=== PATIENT | female | born 1970 | race Caucasian/White ===

== ENCOUNTER → 2018-10-15 11:29 | Outpatient (CLI) | payer OTHER, SELFPAY ==
[2018-10-16 16:03] LABS: HPV Reflexed? NOT INDICATED
== END ==
PROVIDERS: Visit Provider Obstetrics & Gynecology
DX: Z12.4 Encounter for screening for malignant neoplasm of cervix (principal)
CPT/HCPCS: 88175; G0145

== ENCOUNTER → 2020-05-23 10:12 | Outpatient (CLI) | payer OTHER, SELFPAY ==
[2020-05-16 10:08] VITALS: BMI 22.4
[2020-05-23 10:46] LABS: Vitamin D,25 Hydroxy 59.1 ng/mL
[2020-05-23 10:54] LABS: AST(SGOT) 15 U/L (15-37); Alanine Aminotransfer ALT/SGPT 16 U/L (13-56); Alkaline Phosphatase 74 U/L (45-117); Anion Gap 6 (5-15); BUN 13 mg/dL (7-18); BUN/Creat Ratio 17.5 RATIO (10-20); Calcium,Total 9.2 mg/dL (8.5-10.1); Chloride 104 mmol/L (98-107); Cholesterol 236 mg/dL (200); Creatinine, Serum 0.74 mg/dL (0.55-1.02); EST Glomerular Filtration Rate 88 mL/min (>60); Est Glom Filt Rate - Afr Amer 106 mL/min (>60); Globulin 3.9 g/dL (2.2-4.2); Glucose 101 mg/dL (74-106); High Density Lipoprotein 68 mg/dL; Potassium 3.9 mmol/L (3.5-5.1); Protein, Total 7.9 g/dL (6.4-8.2); Sodium Level 138 mmol/L (136-145); Thyroid Stim Hormone (TSH) 2.08 uIU/mL (0.358-3.74); Triglycerides 92 mg/dL; Very Low Density Lipoprotein 18 mg/dL (5-40)
== END ==
PROVIDERS: PCP Internal Medicine; Referring Provider Obstetrics & Gynecology; Visit Provider Obstetrics & Gynecology
DX: Z00.00 Encounter for general adult medical examination without abnormal findings (principal); Z13.21 Encounter for screening for nutritional disorder; Z13.29 Encounter for screening for other suspected endocrine disorder; Z13.220 Encounter for screening for lipoid disorders
CPT/HCPCS: 36415; 80053; 80061; 82306; 84443

== ENCOUNTER → 2020-05-25 07:45 | Outpatient (CLI) | payer OTHER, SELFPAY ==
[2020-05-16 10:08] VITALS: BMI 22.4
--- NOTE | 2020-05-25 07:46 | US_ITS ---
STUDY: ULTRASOUND OF THE FEMALE PELVIS - COMPLETE REASON FOR EXAM: Female, 49 years old. ENLARGED UT -- LMP 5 YEARS AGO LMP: The patient is postmenopausal. TECHNIQUE: Transabdominal and Transvaginal TECHNICAL QUALITY: Adequate. COMPARISON: None. FINDINGS: The uterus is anteverted and is in a midline position. The uterus is enlarged and measures 15.6 cm x 6.1 cm x 6.1 cm. Normal uterine cervix. The endometrium was not available for measurement due to the fibroids. 2 dominant fibroids are seen. The larger measures 4.1 cm x 4.8 cm x 4.6 cm. I.U.D. - The patient does not have an I.U.D. The right ovary is visualized. The right ovary measures 2 cm x 1.9 cm x 1.1 cm. There is no right ovarian cyst or ovarian mass. There is no visualized right adnexal mass or complex lesion. There is normal arterial and normal venous vascularity. The left ovary is visualized. The left ovary measures 2 cm x 2.3 cm x 0.7 cm. There is no left ovarian cyst or ovarian mass. There is no visualized left adnexal mass or complex lesion. There is normal arterial and normal venous vascularity. There is no fluid in the cul-de-sac. US/Pelvic (Non ) IMPRESSION: Enlarged fibroid uterus. Electronically Signed: Harry Beaulieu, at 13:08 EDT , Service support ,
--- NOTE | 2020-05-25 07:46 | US_ITS ---
STUDY: ULTRASOUND OF THE FEMALE PELVIS - COMPLETE REASON FOR EXAM: Female, 49 years old. ENLARGED UT -- LMP 5 YEARS AGO LMP: The patient is postmenopausal. TECHNIQUE: Transabdominal and Transvaginal TECHNICAL QUALITY: Adequate. COMPARISON: None. FINDINGS: The uterus is anteverted and is in a midline position. The uterus is enlarged and measures 15.6 cm x 6.1 cm x 6.1 cm. Normal uterine cervix. The endometrium was not available for measurement due to the fibroids. 2 dominant fibroids are seen. The larger measures 4.1 cm x 4.8 cm x 4.6 cm. I.U.D. - The patient does not have an I.U.D. The right ovary is visualized. The right ovary measures 2 cm x 1.9 cm x 1.1 cm. There is no right ovarian cyst or ovarian mass. There is no visualized right adnexal mass or complex lesion. There is normal arterial and normal venous vascularity. The left ovary is visualized. The left ovary measures 2 cm x 2.3 cm x 0.7 cm. There is no left ovarian cyst or ovarian mass. There is no visualized left adnexal mass or complex lesion. There is normal arterial and normal venous vascularity. There is no fluid in the cul-de-sac. US/Transvaginal Non- IMPRESSION: Enlarged fibroid uterus. Electronically Signed: Harry Beaulieu, at 13:08 EDT , Service support ,
== END ==
PROVIDERS: PCP Internal Medicine; Referring Provider Obstetrics & Gynecology; Visit Provider Obstetrics & Gynecology
DX: N85.2 Hypertrophy of uterus (principal)
CPT/HCPCS: 76830; 76856

== ENCOUNTER → 2020-09-19 08:26 | Outpatient (CLI) | payer OTHER, SELFPAY ==
[2020-05-30 10:18] VITALS: BMI 22.4
--- NOTE | 2020-09-19 08:31 | US_ITS ---
STUDY: ULTRASOUND OF THE FEMALE PELVIS - COMPLETE REASON FOR EXAM: Female, 49 years old. Enlarged fibroid ut LMP: The patient is postmenopausal. TECHNIQUE: Transabdominal and Transvaginal TECHNICAL QUALITY: Adequate. COMPARISON: Comparison is made with prior study dated 05/25/2020. FINDINGS: The uterus is anteverted and is in a midline position. The uterus is enlarged and measures 10.6 cm x 8.8 cm x 6.1 cm. Normal uterine cervix. The endometrium measures 2.0 mm in thickness, and is hyperechoic. There is no demonstrated endometrial mass. Several uterine fibroids are seen. The largest measures 4.8 cm x 5.3 cm x 4.7 cm. This is essentially unchanged. I.U.D. - The patient does not have an I.U.D. The right ovary is visualized. The right ovary measures 1.9 cm x 2 cm x 1.1 cm. There is no right ovarian cyst or ovarian mass. There is no visualized right adnexal mass or complex lesion. There is normal arterial and normal venous vascularity. The left ovary is visualized. The left ovary measures 1.4 cm x 1.5 cm x 0.8 cm. There is no left ovarian cyst or ovarian mass. There is no visualized left adnexal mass or complex lesion. There is normal arterial and normal venous vascularity. There is no fluid in the cul-de-sac. The pre void volume of the bladder was 253 ml. Polycystic ovary disease: No. US/Transvaginal Non- IMPRESSION: Enlarged fibroid uterus. Essentially stable. Electronically Signed: Harry Beaulieu, at 13:39 EST , Service support ,
--- NOTE | 2020-09-19 08:31 | US_ITS ---
STUDY: ULTRASOUND OF THE FEMALE PELVIS - COMPLETE REASON FOR EXAM: Female, 49 years old. Enlarged fibroid ut LMP: The patient is postmenopausal. TECHNIQUE: Transabdominal and Transvaginal TECHNICAL QUALITY: Adequate. COMPARISON: Comparison is made with prior study dated 05/25/2020. FINDINGS: The uterus is anteverted and is in a midline position. The uterus is enlarged and measures 10.6 cm x 8.8 cm x 6.1 cm. Normal uterine cervix. The endometrium measures 2.0 mm in thickness, and is hyperechoic. There is no demonstrated endometrial mass. Several uterine fibroids are seen. The largest measures 4.8 cm x 5.3 cm x 4.7 cm. This is essentially unchanged. I.U.D. - The patient does not have an I.U.D. The right ovary is visualized. The right ovary measures 1.9 cm x 2 cm x 1.1 cm. There is no right ovarian cyst or ovarian mass. There is no visualized right adnexal mass or complex lesion. There is normal arterial and normal venous vascularity. The left ovary is visualized. The left ovary measures 1.4 cm x 1.5 cm x 0.8 cm. There is no left ovarian cyst or ovarian mass. There is no visualized left adnexal mass or complex lesion. There is normal arterial and normal venous vascularity. There is no fluid in the cul-de-sac. The pre void volume of the bladder was 253 ml. Polycystic ovary disease: No. US/Pelvic (Non ) IMPRESSION: Enlarged fibroid uterus. Essentially stable. Electronically Signed: Harry Beaulieu, at 13:39 EST , Service support ,
== END ==
PROVIDERS: PCP Internal Medicine; Referring Provider Obstetrics & Gynecology; Visit Provider Obstetrics & Gynecology
DX: D25.1 Intramural leiomyoma of uterus (principal); N85.2 Hypertrophy of uterus
CPT/HCPCS: 76830; 76856

== ENCOUNTER 2021-04-25 07:42 | Day surgery (SDC) | payer OTHER, SELFPAY ==
[2021-03-28 13:31] VITALS: BMI 22.4
--- NOTE | 2021-04-21 09:54 | EKG12_ITS ---
Test Reason : PREOP Blood Pressure : / mmHG Vent. Rate : 066 BPM Atrial Rate : 066 BPM P-R Int : 132 ms QRS Dur : 098 ms QT Int : 404 ms P-R-T Axes : 072 048 055 degrees QTc Int : 423 ms Normal sinus rhythm Normal ECG Confirmed by CLARI CAMPO, DENITA ([id number]), automation technician AMARI SEO ([id number]) on 04/26/2021 2:28:42 PM Referred By: Yasmine Olivares Confirmed By:DENITA MONTAGUE MD
[2021-04-21 11:21] LABS: Absolute Lymphocyte Count 0.87 X10^3/uL (0.83-4.51); Absolute Neutrophil Count 3.6 X10^3/uL (2.0-7.7); Basophil# 0.03 X10^3/uL; Basophil% 0.6 % (0-1); Eosinophil# 0.04 X10^3/uL; Eosinophils% 0.8 % (0-5); Hematocrit 43.9 % (37-47); Hemoglobin 14.1 g/dL (12.0-15.0); Lymphocyte # 0.87 X10^3/ul (0.83-4.51); Mean Corp Hgb Conc 32.1 g/dL (32-36); Mean Corpuscular Hgb 30.1 pg (27.0-32.0); Mean Corpuscular Volume 93.6 fL (81-99); Mean Platelet Vol. 10.7 fl (6.2-12.0); Monocyte# 0.54 X10^3/uL; Monocyte% 10.6 % (0-10); NRBC Flagged by Analyzer 0 % (0-5); Neutrophil # 3.61 X10^3/uL (2.7-7.7); Neutrophil % 70.6 % (47-70); Platelet Count 238 K/mm3 (150-450); RBC Distribution Width SD 44.2 fl (35.1-43.9); Red Blood Count 4.69 M/mm3 (4.2-5.4); White Blood Count 5.1 K/mm3 (4.4-11.0)
[2021-04-21 11:43] LABS: Magnesium 2.2 mg/dL (1.6-2.6)
--- NOTE | 2021-04-22 01:45 | HP.PCM_ITS ---
History and Physical Date of Admission: 04/22/21 [facility] [id number] [place] [address] [phone] OFFICE VISITDate of Service: 03/28/21 MR#:[id number]:[id number]: SHIV DESIR ARep #:[id number]:[id number] Provider:Sandra Keen/Sex: 50/F [facility] Vital Signs 03/28/21 13:29 03/28/21 13:31 Height 5 ft 4 in Weight: 131 lb BMI 22.4 22.4 BP 144/102 H Intake Visit Reasons: surgery consult Chief Complaint: surgical consult Sccm Administrator Required: No Is patient in pain?: No Allergies No Known Allergies Allergy (Unverified 05/30/20 10:18) Medications multivitamin,yh-fkub-iagrjcnv 1 tab PO DAILY 05/16/20 [History Confirmed 03/28/21] Is last menstrual period known: No Post menopausal: No Patient : No : No [facility] Medical History (Updated 03/28/21 @ 14:[address] 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 surgery consult Details: SHIV DESIR is a 50 year old who presents for surgical consult. She has a history of uteirne fibroids and pelvic pressure, urinary urgency and enlarged uterus. She wanted to originally delay surgery due to work and now is ready. she is tender in her lower abdomen. Female Reproductive History Menopausal Symptoms: No night sweats Pregancy History 2 Elective abortions Hx Para 2 Spontaneous abortions Hx # Term Pregnancies 2 Ectopic pregnancies Hx # Pregnancies Multiple births # of living children 2 Past Pregnancies Del. Date Name GA/Weeks Outcome Route Bth Weight Gen [facility] F[facility] Francisco Unknown Cydney ROS Const Constitutional: Denies fatigue, night sweats, weight gain or weight loss ENT ENT: Reports system reviewed and no additional complaints, except as documented Cardio Card: Denies chest pain Resp Resp: Denies cough or dyspnea GI GI: Reports as per HPI; Denies abdominal pain, constipation, nausea or vomiting : Reports as per HPI and urinary urgency; Denies nipple discharge, urinary frequency, urinary incontinence, urinary hesitancy, vaginal discharge, vaginal dryness, vaginal odor or vaginal pruritus Musc Musc: Denies arthralgias, back pain or muscle weakness Skin Skin/Breast: Denies alopecia, change in hair, dry skin, breast mass, breast pain, breast skin changes or nipple discharge Neuro Neuro: Reports system reviewed and no additional complaints, except as documented Psych Psych: Reports system reviewed and no additional complaints, except as documented Endo Endo: Denies cold intolerance, excessive sweating, heat intolerance or polydipsia Rios/Lymph Hematologic/Lymphatic: Denies easy bleeding, Denies easy bruising and Denies lymphadenopathy Exam Const General: cooperative, healthy appearing, comfortable, no acute distress and well developed Orientation: alert [facility] Head: normal to inspection and normocephalic Ears: hearing grossly normal bilaterally and external ears normal Nose: external nose normal and nares normal Face and sinus: normal facial exam Neck Neck: normal visual inspection and no lymphadenopathy Thyroid: thyroid normal Chest Chest palpation & inspection: normal inspection of the chest Resp Effort & Inspection: normal respiratory effort Auscultation: clear to auscultation bilaterally Cardio Rate: regular rate Rhythm: regular rhythm Heart Sounds: S1 normal and S2 normal GI Inspection: normal to inspection and non-distended Palpation: soft and no hepatosplenomegaly Other: enlarged uterus 12-14 week size. Musc Other: gross motor intact no deficits, full bilateral strength Skin General: no rashes or lesions noted Neuro General: patient alert, patient awake, moves all extremities and no focal motor deficits Motor: muscle tone normal throughout Extrem General: normal to inspection and no pedal edema Psych Appearance: grossly normal Mental Status: mental status grossly normal Affect: normal affect Speech and Movement: speech and movement normal Coding Level of Care Code Off vis,est,level 5 Diagnoses Intramural uterine fibroid D25.1 Enlarged uterus N85.2 Assessment and Plan Assessment and Plan (1) Intramural uterine fibroid: Status: Acute Comment: plan JACKLYN April. . Plan - Dr. Yasmine Olivares MD: After discussing the patient's diagnosis and treatment plan options, patient wishes to proceed with surgical management. I have discussed with the patient the risks, benefits, and alternatives of the procedure which include but are not limited to risks of anesthesia, bleeding, infection, possible damage to bowel, bladder, or surrounding vasculature which could lead to additional surgery to evaluate any complications. Patient agrees to procedure and wishes to proceed. ACOG/uptodate references given for additional information regarding procedure. (2) Enlarged uterus: Status: Acute
[2021-04-25] VITALS (14 sets, daily range): BP systolic 130–174; BP diastolic 78–115; PULSE 69–112; RESP 16; TEMP 36.1–36.4; O2SAT 93–100; BMI 22.2
--- NOTE | 2021-04-25 | HYST_PTH ---
PATIENT: SHIV DESIR [place] [facility] [id number] AGE/SX: 50/F ROOM: RE04/25/[address]: Dr. Yasmine Olivares MD : 1970 BED: DIS: 04/25/2021 SPEC #: [id number] RECD: 04/25/21 13:58 STATUS: ZURI CAO #: [id number] TRISH: 04/25/21 00:[address]: Yasmine Olivares DEPT: SURGICAL PATHOLOGY RECD BY: Bill Wagoner ENTERED: 04/26/21 08:52 SP TYPE: HYSTERECT OTHR DR: Dr. Ifeoma Ramsey MD Tissues: Uterus, NOS Procedures: Surgery Specimen Level V HEADER OPERATION: ERAS, hysterectomy, LAVH, salpingectomy PRE-OP DIAGNOSIS: Intramural uterine fibroid TISSUE SUBMITTED: Uterus, cervix, bilateral fallopian tubes MICROSCOPIC DIAGNOSIS Uterus, hysterectomy: Cervix ? nabothian cysts and mild chronic inflammation. Endometrium ? weakly proliferative to inactive endometrium. Myometrium ? leiomyoma and adenomyosis. Right fallopian tube ? no pathologic change. Left fallopian tube ? benign paratubal cysts. AM:elizabeth 04/27/2021 MICROSCOPIC DESCRIPTION Slides are reviewed. GROSS DESCRIPTION Received in fixative is one container labeled with the patient's name and designated uterus. The specimen consists of a morcelated uterus received in six fragments and ranging in size from 2.5 to 8 cm and in aggregate weighing 285 gm. The presumed endocervical canal measures 4.5 cm in length and is grossly unremarkable. A distinct endometrial cavity is not identified. The myometrium appears to contain a lobulated, rubbery nodule resembling leiomyoma and measuring 7 cm in diameter. Rubbery fragments of white-mack tissue resembling portions of leiomyoma are also present free in the container. No areas of cyst formation, necrosis or hemorrhage are identified within this nodule. Two fallopian tubes are attached, both have an average length of 4 cm and average diameter of 3.4 cm. Normal fimbriated ends are identified on both fallopian tubes. Apprentice Stylist sections are submitted in ten cassettes as follows: 1 - cervix and endocervix, 2-5 - presumed endometrium and adjacent myometrium, 6-8 - myometrial nodule, 9 - one fallopian tube, 10 - the other fallopian tube. / AM:elizabeth 04/26/21 TC:1 CPT: 59134
[2021-04-25] MEDS: Enoxaparin 40 MG/0.4 ML Syringe SC (08:24)
[2021-04-25] MEDS: Scopolamine 1mg/72hr Patch 1 PATCH TD (08:24)
[2021-04-25] MEDS: Gabapentin 600 MG Tablet PO (08:25)
[2021-04-25] MEDS: Celecoxib 200 MG Capsule 400 MG PO (08:25)
[2021-04-25] MEDS: Phenazopyridine 95 MG Tablet 190 MG PO (08:25)
[2021-04-25] MEDS: Acetaminophen 500 MG Tablet 1000 MG PO (08:25)
[2021-04-25] MEDS: dexAMETHasone 10 MG/ML Vial 8 MG IV (08:26)
[2021-04-25] MEDS: Lactated Ringers 1,000 ML 40 ML IV (08:27)
[2021-04-25 08:55] LABS: Bedside Glucose 101 mg/dL (70-110)
[2021-04-25] MEDS: Ondansetron 4 MG/2 ML Vial IV (09:40)
[2021-04-25] MEDS: Cefazolin 2 GM in 0.9% Normal Saline 100 ML IV (09:47)
--- NOTE | 2021-04-25 10:00 | OP.PCM_ITS ---
Problems Associated Problem List Diagnoses (1) DVT (deep venous thrombosis): (2) Enlarged uterus: (3) Intramural uterine fibroid: Report of Operation Date of Procedure: 04/25/21 Pre-Operative Diagnosis: AUB Post-Operative Diagnosis: same Surgery/Procedure Performed:: LAVHBS cystoscopy Description of Surgical Findings:: uterus small and atrophic with large posterior fibroid manager mining: Myrna Gibson Type of Anesthesia: General Special Medications: shruthi Specimen's removed: uterus, tubes Drains: chavarria Estimated Blood Loss (mL): 100 Fluids Replaced: crystalloid Description of Procedure: Patient received preoperative antibiotics and SCDs were on preoperatively. Patient was taken back to the operating room and placed in the dorsal lithotomy position. General anesthesia was induced and patient was prepped and draped in normal sterile fashion. Uterine manipulator was placed inside the uterus and Chavarria catheter placed in the bladder. The umbilicus was grasped with towel clamps and an intraumbilical incision was made after injecting with quarter percent Marcaine and a Veress needle entered into the abdomen confirmed to be intra-abdominal with a low opening pressure. Abdomen was insufflated with CO2 gas and the Veress needle removed and the 5 mm trocar was placed under direct visualization without complication. Right and left lower quadrants were transilluminated and injected with quarter percent Marcaine and 5 mm ports placed under direct visualization. Pelvis was well visualized see operative findings for additional information. Bilateral fallopian tubes were identified and transected with the LigaSure device across the mesosalpinx to the level of the utero-ovarian ligament which was also transected with the LigaSure device. The broad ligament was opened up by transecting the round ligament bilaterally and skeletonizing the uterine vessels bilaterally and creating a bladder flap using the LigaSure device. The uterine arteries were transected bilaterally with good visualization of the bladder and the ureters were seen to be inferior lateral to the operative area. Attention was then paid to the vaginal portion of the procedure and the cervix was grasped with Fermin clamps and circumferentially injected with dilute vasopressin. A circumferential incision was made and the vaginal mucosa was mobilized off posteriorly and the cul-de-sac entered into sharply and a longneck speculum placed. The anterior cul-de-sac was then identified and entered into sharply. The uterosacral ligaments were clamped cut and suture ligated with 0 Monocryl bilaterally followed by the cardinal ligaments which were clamped cut and suture ligated bilaterally with 0 Monocryl. The uterus serially descended and was removed with coring resection for morcellation and without difficulty. Pelvic sidewall pedicles were checked and noted to have excellent hemostasis. The vaginal mucosa was reapproximated incorporating the posterior peritoneum. This was reapproximated using 0 Vicryl onviad-it-oymlb sutures. Excellent hemostasis was noted. Due to the close proximity of the ureter to the right cuff angle in the pelvis, cystoscopy was performed. The cystoscopy was then performed and bilateral ureteral strong spray was noted and the bladder was noted to have no abnormality or lesions seen. Chavarria catheter was replaced and then attention paid to the abdominal portion of the procedure again. The pelvis and cul-de-sac were well visualized and no significant active bleeding noted but some raw areas were seen on the peritoneum and therefore Shruthi was applied. Pressure was taken down and the areas visualized and noted of excellent hemostasis. All ports were removed under direct visualization without complication and the abdo men was desufflated of air. The instruments were removed from the abdomen and the vaginal sweep was negative. Port sites on the abdomen were closed with 4-0 Monocryl interrupted sutures and Steri's and windows were applied. She was awoken and taken recovery in stable condition. Grafts/Implants Used: none Complications none Admit VTE Documentation VTE Present on Admission: No VTE Mechan Device Prophylaxis: SCD's VTE Pharm Prophylaxis ordered?: Yes Multi Select Codes Urinary/Genital Urinary/Genital CPT Codes: 37312 Cystoscopy and 32846 LAVH+BS/O <250gr Uterus
--- NOTE | 2021-04-25 10:01 | EX.PCM.DISCH ---
Discharge Instructions Diet Discharge Diet: No restrictions Activity May resume sexual activity in: 6 weeks Weight Bearing Status: Full weight bearing Dressing / Incision Call your doctor if your incision/area has: Continuous Slow Oozing, Sudden Increased Bleeding, Increased Pain/ Swelling, Increased Redness and Foul Smelling Discharge Call your doctor if you observe: Fever of 101 or Higher, Using more than 1 pad per hour, Shortness of breath, Chest pain and Uncontrolled pain Suture Line Care: Avoid Pulling/Pushing and Avoid Pinching/Bending Remove Dressing in: 1 week (if present) Cleanse incision/area with: Soap & Water and Keep Dressing Clean & Dry Follow Up Care Please Follow Up With: Yasmine Olivares MD When: Call to make an appointment with your doctor for a postop visit in 2 and 6 weeks. Test Results: Test results from this visit will be discussed in further detail at your follow-up appointment, if applicable. Discharge Plan Admission Primary Reason for Your Visit: hysterectomy Attending Provider: Yasmine Olivares Primary Care Provider: Ifeoma Ramsey Discharge Orders/Prescriptions Prescriptions: New oxycodone-acetaminophen [Endocet] 5-325 mg tablet 1 tab PO Q4H PRN (Reason: pain) 7 Days Qty: 20 RF: 0 ibuprofen [ibuprofen] 600 MG tablet 600 mg PO Q6H PRN PRN (Reason: fever or pain) Qty: 30 RF: 0 enoxaparin [Lovenox] 40 MG/0.4 ML syringe 40 mg SQ DAILY 40 Days Qty: 20 RF: 1 Continued multivitamin,ni-qwqe-tvgqtojg tablet 1 tab PO DAILY RF: 0 Referrals / Follow Up: Ifeoma Ramsey MD [Primary Care Provider] - Disposition Disposition (needs filled in before D/C Order can be placed): Home, Self Care
[2021-04-25] MEDS: Lactated Ringers 1,000 ML 70 ML IV ×2 (10:05→14:15)
[2021-04-25] MEDS: Bupivacaine 0.25% 30 ML Vial (10:17)
[2021-04-25] MEDS: Vasopressin 20 UNITS/ML Vial (10:47)
[2021-04-25 12:25] LABS: Bedside Glucose 159 mg/dL (70-110)
[2021-04-25] MEDS: oxyCODONE 5 MG Tablet PO (14:02)
[2021-04-25 15:15] LABS: Hematocrit 38.6 % (37-47); Mean Corp Hgb Conc 33.7 g/dL (32-36); Mean Corpuscular Hgb 30.7 pg (27.0-32.0); Mean Corpuscular Volume 91.3 fL (81-99); Mean Platelet Vol. 10.6 fl (6.2-12.0); Platelet Count 191 K/mm3 (150-450); RBC Distribution Width CV 12.9 % (11.6-14.6); RBC Distribution Width SD 43.2 fl (35.1-43.9); Red Blood Count 4.23 M/mm3 (4.2-5.4); White Blood Count 13.4 K/mm3 (4.4-11.0)
== END 2021-04-25 16:55 | disposition home or self-care (01) ==
LOC: SDC 07:44 → AC 07:44
PROVIDERS: Anesthesiology; PCP Internal Medicine; Referring Provider Obstetrics & Gynecology; Visit Provider Obstetrics & Gynecology
PROC: 0UT9FZZ Resection of Uterus, Via Natural or Artificial Opening With Percutaneous Endoscopic Assistance (ICD-10-PCS; CPT 58552; principal; 2021-04-25 09:15)
DX: D25.1 Intramural leiomyoma of uterus (principal); N80.0 Endometriosis of uterus; N83.8 Other noninflammatory disorders of ovary, fallopian tube and broad ligament; Z86.718 Personal history of other venous thrombosis and embolism
CPT/HCPCS: 58552; 36415; 82962; 83735; 85025; 85027; 86850; 86900; 86901; 88307; 93005; J7120; J2405; J3475

== ENCOUNTER → 2021-05-02 10:32 | Outpatient (CLI) | payer OTHER, SELFPAY ==
[2021-04-25 08:39] VITALS: BMI 22.2
--- NOTE | 2021-05-02 10:34 | VDUE_ITS ---
Reason For Study: PAIN Left Proximal Left jugular vein is spontaneous, widely patent, phasic, with no intraluminal echogenicity noted. Left subclavian vein is spontaneous, widely patent, phasic, with no intraluminal echogenicity noted. Left Arm Left axillary vein is spontaneous, patent, phasic, competent, compressible and demonstrates augmentation. Left brachial vein is compressible. Left cephalic vein is compressible. Left basilic vein is compressible. Left Lower Arm Left radial vein is compressible. Left ulnar vein is compressible. Patient Safety Preliminary called to Shefali JOHNSON @ [phone] @ 11 am. VL/Venous Duplex US, Unilateral Interpretation Summary No evidence for acute deep venous thrombosis[left] upper extremity with patent and compressible cephalic and basilic veins. Ordering Physician: Yasmine Olivares Referring Physician: Ifeoma Ramsey Performed By: Brooke Brewster RVT, RDCS and Student ?
== END ==
PROVIDERS: PCP Internal Medicine; Referring Provider Obstetrics & Gynecology; Visit Provider Obstetrics & Gynecology
DX: I82.409 Acute embolism and thrombosis of unspecified deep veins of unspecified lower extremity (principal)
CPT/HCPCS: 93971

== ENCOUNTER → 2021-06-05 11:20 | Outpatient (CLI) | payer OTHER, SELFPAY ==
[2020-05-30 10:18] VITALS: BMI 22.4
[2021-06-05 09:53] VITALS: BMI 22.2
--- NOTE | 2021-06-05 11:21 | BI_ITS ---
MAMMOGRAPHY - BILATERAL SCREENING REASON FOR EXAM: Female, 50 years old. Routine annual screening examination. PERTINENT HISTORY: Non-contributory. TECHNIQUE: Digital bilateral breast moise (3D mammographic acquisition) in the CC and MLO projections. 2-D mediolateral oblique (MLO) and craniocaudad (CC) views of both breasts were obtained. CAD: Full Field Digital Mammography with Computer Added Detection was performed. COMPARISON: Comparison is made with prior abdomen examination dated 09/21/2019. FINDINGS: Breast Composition: There are scattered areas of fibroglandular density. There are no dominant masses or suspicious calcifications. No other significant abnormalities are identified. There has been no significant change since the prior study. BI/SCRN MAMM (CAD)W/MOISE BILAT IMPRESSION: Stable bilateral screening mammogram. Yearly follow-up mammogram recommended. (A) ASSESSMENT CATEGORY: BIRADS Category 1: Negative. A letter regarding these results will be sent to the patient by the facility within 30 days. Approximately 10% of breast cancers are not detected by mammography. A normal mammogram should not delay biopsy of a clinically suspicious abnormality. [id number] Electronically Signed: Harry Beaulieu MD at 12:51 EDT , Service support ,
== END ==
PROVIDERS: PCP Internal Medicine; Referring Provider Obstetrics & Gynecology; Visit Provider Obstetrics & Gynecology
DX: Z12.31 Encounter for screening mammogram for malignant neoplasm of breast (principal)
CPT/HCPCS: 77063; 77067

== ENCOUNTER → 2022-06-14 | Outpatient (CLI) | payer OTHER, SELFPAY ==
--- NOTE | 2022-06-14 16:26 | BI_ITS ---
MAMMOGRAPHY - BILATERAL SCREENING REASON FOR EXAM: Female, 51 years old. Routine annual screening examination. PERTINENT HISTORY: Aunt with breast cancer. TECHNIQUE: Digital bilateral breast moise (3D mammographic acquisition) in the CC and MLO projections. 2-D mediolateral oblique (MLO) and craniocaudad (CC) views of both breasts were obtained. CAD: Full Field Digital Mammography with Computer Added Detection was performed. COMPARISON: Comparison is made with prior examination 06/05/2021. FINDINGS: Breast Composition: The breasts are heterogeneously dense, which may obscure small masses. There are no dominant masses or suspicious calcifications. No other significant abnormalities are identified. There has been no significant change since the prior study. BI/SCRN MAMM (CAD)W/MOISE BILAT IMPRESSION: Stable bilateral screening mammogram. Yearly follow-up mammogram recommended. (A) ASSESSMENT CATEGORY: BIRADS Category 1: Negative. A letter regarding these results will be sent to the patient by the facility within 30 days. Approximately 10% of breast cancers are not detected by mammography. A normal mammogram should not delay biopsy of a clinically suspicious abnormality. [id number] Electronically Signed: Harry Beaulieu MD at 8:36 EDT ,
== END | disposition home or self-care (01) ==
LOC: OPBI 16:24
PROVIDERS: PCP Internal Medicine; Visit Provider Obstetrics & Gynecology
DX: Z12.31 Encounter for screening mammogram for malignant neoplasm of breast (principal)
CPT/HCPCS: 77063; 77067

== ENCOUNTER 2022-09-12 08:28 | Outpatient (CLI) | payer OTHER, SELFPAY ==
--- NOTE | 2022-09-12 08:40 | BD_ITS ---
STUDY: DUAL ENERGY X-RAY ABSORPTIOMETRY / DXA REASON FOR EXAM: Female, 51 years old. History of fracture TECHNIQUE: Bone Mineral Density (BMD) measurements of lumbar spine and bilateral hips were obtained. COMPARISON: None. FINDINGS: Lumbar Spine (L1-L4): g/cm2 (0.775) / T-score (-2.5) / Z-score (-1.6) Findings are suggestive of osteopenia with a high fracture risk. Left Femur Total: g/cm2 (0.793) / T-score (-1.2) / Z-score (-0.6) Left Femoral Neck: g/cm2 (0.644) / T-score (-1.8) / Z-score (0.9) Right Femur Total: g/cm2 (0.820) / T-score (-1.0) / Z-score (-0.4) Right Femoral Neck: g/cm2 (0.713) / T-score (-1.2) / Z-score (-0.3) BD/Dexa Bone Density Study IMPRESSION: The patient is considered osteopenic as outlined below according to World [place] Organization (WHO) criteria with a high fracture risk. Reference Information: The T-score is the number of standard deviations above or below the standard which is normal for young adults at their peak bone mineral density. The World Health Organization (WHO) interprets the T-scores as follows: Above -1 Normal bone density Between -1 and -2.5 Osteopenia Equal to / or below -2.5 Osteoporosis As a practical clinical guideline, osteopenia may be graded as follows: Mild -1 through -1.5 Moderate -1.6 through -2.0 Severe -2.1 through -2.4 The Z-score is the number of standard deviations above or below age-matched controls. A Z-score of less than -1.5 would be considered abnormal. References: 1. NIH Osteoporosis and Related Bone Diseases www osteo.org 2. International Society for Clinical Densitometry www iscd.org 3. National Osteoporosis Foundation www nof.org Electronically Signed: Harry Beaulieu MD at 11:16 EST ,
== END 2022-09-12 23:59 | disposition home or self-care (01) ==
LOC: OPBD 08:29
PROVIDERS: PCP Internal Medicine; Visit Provider Obstetrics & Gynecology
DX: Z78.0 Asymptomatic menopausal state (principal); Z87.81 Personal history of (healed) traumatic fracture
CPT/HCPCS: 77080

== ENCOUNTER → 2022-12-10 | Outpatient (CLI) | payer OTHER, SELFPAY ==
[2022-12-10 15:57] LABS: Vitamin D,25 Hydroxy 58.6 ng/mL
[2022-12-10 16:06] LABS: ALB/GLOB Ratio 1.1 RATIO (0.9-2.4); AST(SGOT) 19 U/L (15-37); Alanine Aminotransfer ALT/SGPT 17 U/L (13-56); Albumin, Serum 3.9 g/dL (3.2-5.0); Alkaline Phosphatase 86 U/L (45-117); Anion Gap 6 (5-15); BUN 12 mg/dL (7-18); BUN/Creat Ratio 13.2 RATIO (10-20); Calcium,Total 9.5 mg/dL (8.5-10.1); Chloride 107 mmol/L (98-107); Creatinine, Serum 0.91 mg/dL (0.55-1.02); EST Glomerular Filtration Rate 69 mL/min (>60); Est Glom Filt Rate - Afr Amer 83 mL/min (>60); Globulin 3.6 g/dL (2.2-4.2); Glucose 104 mg/dL (74-106); Potassium 3.5 mmol/L (3.5-5.1); Protein, Total 7.5 g/dL (6.4-8.2); Sodium Level 141 mmol/L (136-145); Thyroid Stim Hormone (TSH) 1.44 uIU/mL (0.358-3.74)
== END | disposition home or self-care (01) ==
LOC: LAB 14:38
PROVIDERS: PCP Internal Medicine; Referring Provider Internal Medicine Endocrinology, Diabetes & Metabolism; Visit Provider Internal Medicine Endocrinology, Diabetes & Metabolism
DX: M81.0 Age-related osteoporosis without current pathological fracture (principal); E55.9 Vitamin D deficiency, unspecified
CPT/HCPCS: 36415; 80053; 82306; 83970; 84443

== ENCOUNTER → 2023-01-28 | Outpatient (CLI) | payer OTHER, SELFPAY ==
--- NOTE | 2023-01-29 05:53 | BRONCHALL_ITS ---
Bronchoprovocation Challenge Bronchoprovocation Challenge Bronchoprovocation Challenge: Brief HPI: Patient is a 52 year old female, currently under the care of Dr. Monroy, who presents to [facility] for a bronchoprovocation study secondary to diagnosis of chronic cough. Respiratory therapist reports good effort and reproducible results. Interpretation: Initial spirometry showed no large airways obstructive ventilatory defect. The patient was then given increasingly concentrated doses of methacholine in a stepwise/standardized fashion, using a modified ATS protocol. The patient?s maximum reduction in FEV1 was 11 percent predicted. Impression: Negative Bronchoprovocation study. This is NOT consistent with the diagnosis of asthma.
== END | disposition home or self-care (01) ==
LOC: PSN 06:45
PROVIDERS: PCP Internal Medicine
DX: R05.3 Chronic cough (principal)
CPT/HCPCS: 94070; 95070; J3490; J7674

== ENCOUNTER → 2023-09-11 | Outpatient (CLI) | payer OTHER, SELFPAY ==
--- NOTE | 2023-09-11 09:50 | BI_ITS ---
MAMMOGRAPHY - BILATERAL SCREENING REASON FOR EXAM: Female, 52 years old. Routine annual screening examination. PERTINENT HISTORY: Non-contributory. TECHNIQUE: Digital bilateral breast moise (3D mammographic acquisition) in the CC and MLO projections. 2-D mediolateral oblique (MLO) and craniocaudad (CC) views of both breasts were obtained. CAD: Full Field Digital Mammography with Computer Added Detection was performed. COMPARISON: Comparison is made with prior study June 14, 2022 and June 05, 2021. FINDINGS: Breast Composition: The breasts are heterogeneously dense, which may obscure small masses. There are no dominant masses or suspicious calcifications. Stable small benign-appearing bilateral axillary lymph nodes. No other significant abnormalities are identified. There has been no significant change since the prior study. BI/SCRN MAMM (CAD)W/MOISE BILAT IMPRESSION: Stable bilateral screening mammogram. Yearly follow-up mammogram recommended. (A) ASSESSMENT CATEGORY: BIRADS Category 2: Benign. A letter regarding these results will be sent to the patient by the facility within 30 days. Approximately 10% of breast cancers are not detected by mammography. A normal mammogram should not delay biopsy of a clinically suspicious abnormality. [id number] Electronically Signed: Harry Beaulieu MD at 14:37 EST ,
== END | disposition home or self-care (01) ==
PROVIDERS: PCP Internal Medicine; Referring Provider Nurse Practitioner Women's Health; Visit Provider Nurse Practitioner Women's Health
DX: Z12.31 Encounter for screening mammogram for malignant neoplasm of breast (principal); N39.0 Urinary tract infection, site not specified
CPT/HCPCS: 77063; 77067; 87077; 87086; 87088; 87186

== ENCOUNTER 2023-09-26 10:05 | Emergency (ER) | payer OTHER, SELFPAY ==
[2023-09-26 10:06] VITALS: BP 147/90; PULSE 111; RESP 14; TEMP 36.6; O2SAT 98
--- NOTE | 2023-09-26 10:40 | EDS_ITS ---
HPI History of Present Illness Chief Complaint: Back Informant: patient Onset/Context/Timing Onset: Days (5) Context: Gradual Onset Timing: Waxes and wanes Quality: Aching Location: Thoracic Worsened by: improves with Nothing Relieved by: Nothing Associated Symptoms Associated Symptoms: Numbness and Tingling; Negative for Radiation to Right Leg, Radiation to Left Leg, Fever, Abdominal Pain, Dysuria, Unable to Ambulate, Unable to Transfer, Urinary Retention, Urinary Incontinence, Constipation or Fecal Incontinence Narrative Narrative: Presents with back pain that has been constant for the past 5 days. Patient states it is more in her thoracic area. Patient states she has also had pain behind her left knee. Patient states she also has some tingling in her left arm. Patient denies any weakness. Patient describes her pain as aching. Patient states it is gradually gotten worse. Patient denies any radiation of the pain from her back to her legs. Patient denies any pain in her chest or abdomen. Patient denies any nausea or vomiting. Patient denies any bowel or bladder changes. Patient denies any saddle anesthesia. Patient denies any trauma or injury. Patient states nothing makes her pain better and nothing makes it worse. [facility] Medical History DVT (deep venous thrombosis) Elevated LDL cholesterol level Elevated serum cholesterol History of atrial fibrillation (~2003) Non-smoker Normal echocardiogram (~2003) Osteoporosis Wears contact lenses Wears glasses Home Medications amlodipine 5 mg tablet 5 mg PO DAILY 06/14/22 [History Last Taken Unknown] atorvastatin 20 mg tablet (Lipitor) 20 mg PO DAILY 06/14/22 [History Last Taken Unknown] calcium/vit d3 PO 10/30/22 [History Last Taken Unknown] fish oil PO 1XD 10/30/22 [History Last Taken Unknown] magnesium 250 mg tablet See Rx Instructions PO DAILY 10/30/22 [History Last Taken Unknown] multivitamin,la-[id number] (Complete Multivitamin tablet) 1 tab PO DAILY 10/30/22 [History Last Taken Unknown] alendronate 70 mg tablet 70 mg PO QWEEK #4 tabs 03/27/23 [Rx Last Taken Unknown] Allergy/AdvReac Type Severity Reaction Status Date / Time No Known Allergies Allergy Verified 09/11/23 10:46 Family History Father Heart disease Arthritis Diabetes Myocardial infarction, Onset Age: 51 has defibulator and pace maker Hypertension High cholesterol Sister Cardiomyopathy Pacemaker Heart murmur on physical examination Embolism Heart disease has heart murmur and heart valve surgery Aunt Breast cancer Mother Anxiety Embolism Bowel disease Depression Other Autoimmune disorder Surgical History S/P laparoscopic assisted vaginal hysterectomy (LAVH) (~04/25/21) Tangent teeth extracted Social History Smoking Status: Never smoker alcohol intake: current details: social substance use type: does not use caffeine: Yes seatbelt use: always do you feel safe at home: Yes additional social history: [employer]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 Node1 ROS ROS ED Constitutional Constitutional ED: Reports chills and subjective; Denies fever(s) Eyes Eyes: Denies blurry vision or change in vision ENT ENT ED: Denies rhinorrhea or sore throat Cardiovascular Cardiovascular: Denies chest pain or palpitations Respiratory/Chest Respiratory/Chest: Reports dyspnea on exertion; Denies cough or dyspnea Gastrointestinal Gastrointestinal: Reports nausea; Denies vomiting Genitourinary Genitourinary ED: Denies dysuria or hematuria Musculoskeletal Musculoskeletal: Reports back pain; Denies neck pain Integumentary Denies abscess or rash Neurologic Neurologic: Denies headache(s) or weakness Allergic/Immunologic Allergic/Immunologic ED: Denies mouth swelling or urticaria EXAM Physical Exam Const Vital Signs: 09/26/23 10:06 Temperature 98 F Temperature Source Temporal Pulse Rate 111 H Respiratory Rate 14 Blood Pressure 147/90 H Blood Pressure Mean 109 Pulse Ox 98 Oxygen Delivery Method Room Air Positive well nourished and well developed General Appearance ED: well developed and NAD HEENT Reports moist mucous membranes Neck supple and no JVD Resp normal respiratory effort and clear to auscultation bilaterally Cardio regular rate and regular rhythm GI soft to palpation, non-tender and non-distended Back/Spine Thoracic Spine / Upper Back: paraspinal muscle tenderness bilateral Extremity normal to inspection Extremity Narrative: There is tenderness in the left popliteal fossa. There is no bony crepitance or step-off. There is no effusion noted. There is no Navarro's cyst noted. There is no calf edema noted. Pedal pulses are equal bilaterally. General Extremety ED: Yes tenderness; Negative for edema General Extremity: Negative for edema Neuro oriented x3 and no sensory deficits noted Sensorium / Orientation: alert Motor Exam: strength 5/5 throughout Psych mental status grossly normal MDM MDM MDM Narrative Medical decision making narrative: Differential diagnosis includes DVT, thoracic strain, occult fracture, electrolyte abnormality, and muscle strain. Venous duplex of the left lower extremity will be obtained to assess for DVT. X-rays of the thoracic spine will be obtained to assess for occult fracture. CBC will be obtained to assess for leukocytosis and anemia. Basic metabolic profile will be obtained to assess for electrolyte abnormality and renal function. Lab Data Attestation: I reviewed the patient's lab results. Lab results narrative: CBC was reviewed and was within normal limits. Basic metabolic profile was reviewed. Potassium was slightly low at 3.3. The remainder was within normal limits. Radiography Diagnostic Testing: Venous duplex of the left lower extremity was obtained. There is no evidence of DVT. X-rays of the thoracic spine were obtained. There is 2 views. On my independent interpretation, there is no acute fracture or subluxation. There is no spondylolisthesis noted. Radiologist also interpreted the x-rays and agrees. Treatment and Re-Evaluation Narrative: Patient was advised of her findings. Patient was given a dose of [place] here. Patient was instructed to use ice to her back. Patient was instructed to follow-up with her primary care physician in 5 to 7 days. Patient was instructed to take Tylenol or ibuprofen as needed for pain. Patient was instructed to return if worse in any way. Patient understood and was agreeable with the plan. All questions were answered. Discharge Plan Triage Chief Complaint: Back ED Provider: Dion Luna Dx/Rx/DC Orders Clinical Impression: Acute thoracic myofascial strain, Posterior left knee pain Instructions: ED Back Sprain/Strain Prescriptions: No Action multivitamin,bk-hvgl-bmgbylcs tablet 1 tab PO DAILY Patient Comments: has vitc, D3 and zinc atorvastatin [Lipitor] 20 mg tablet 20 mg PO DAILY amlodipine 5 mg tablet 5 mg PO DAILY fish oil PO 1XD Rx Instructions: 1000mg magnesium 250 mg tablet See Rx Instructions PO DAILY Rx Instructions: 2 tabs orally daily to equal 500 mg calcium/vit d3 PO Rx Instructions: 600mg/20mg daily alendronate 70 mg tablet 70 mg PO QWEEK Qty: 4 12RF Primary Care Provider: Ifeoma Ramsey Referrals: Ifeoma Ramsey MD [Primary Care Provider] - 5-7 Days Disposition Disposition: Home, Self Care
--- NOTE | 2023-09-26 10:57 | VDLE_ITS ---
Reason For Study: LLE Pain RIGHT LEFT CFV is compressible, spontaneous, competent CFV is compressible, spontaneous, competent, and demonstrates pulsatile venous flow. and demonstrates pulsatile venous flow. Procedure FV is compressible, spontaneous, competent This is a venous duplex using B-mode, color and demonstrates pulsatile venous flow. flow and spectral Doppler. POP V is compressible, spontaneous, competent Exam performed portable in ED. and demonstrates pulsatile venous flow. The exam was diagnostic. T/P Trunk is compressible. A preliminary report was called and/or faxed PTV is compressible. to Dr. Luna. LT PerV is compressible. VL/Venous Duplex US, Unilateral Interpretation Summary Deep veins of the left lower extremity are patent and compressible segmentally. There is no evidence of left lower extremity deep vein thrombosis. The left great saphenous vein keila ears patent and compressible segmentally. Ordering Physician: Dion Luna Referring Physician: Ifeoma Ramsey M.D. Performed By: Saad Bhakta RVT
[2023-09-26 11:43] VITALS: BMI 24.1
--- NOTE | 2023-09-26 11:45 | RAD_ITS ---
STUDY: X-RAY - THORACIC SPINE REASON FOR EXAM: Female, 52 years old. Injury/Pain TECHNIQUE: 2 view(s) of the thoracic spine were obtained. COMPARISON: None. FINDINGS: Normal kyphosis of the thoracic spine. There is no substantial scoliosis. Normal thoracic vertebrae and endplates. There is a mild degree of disc space narrowing of the thoracic spine. The soft tissue structures are unremarkable. RAD/Thoracic Spine 2 Views IMPRESSION: Mild degree of disc space narrowing. No evidence of prevertebral fracture. Electronically Signed: Harry Beaulieu MD at 12:11 EST ,
[2023-09-26 11:47] LABS: Absolute Lymphocyte Count 0.38 X10^3/uL (0.83-4.51); Absolute Neutrophil Count 6.5 X10^3/uL (2.0-7.7); Basophil# 0.01 X10^3/uL; Basophil% 0.1 % (0-1); Eosinophil# 0.01 X10^3/uL; Eosinophils% 0.1 % (0-5); Hematocrit 42.6 % (37-47); Hemoglobin 14.1 g/dL (12.0-15.0); Lymphocyte # 0.38 X10^3/ul (0.83-4.51); Lymphocyte % 5.1 % (19-41); Mean Corp Hgb Conc 33.1 g/dL (32-36); Mean Corpuscular Hgb 30.2 pg (27.0-32.0); Mean Corpuscular Volume 91.2 fL (81-99); Mean Platelet Vol. 10.2 fl (6.2-12.0); Monocyte# 0.62 X10^3/uL; Monocyte% 8.3 % (0-10); NRBC Flagged by Analyzer 0 % (0-5); Neutrophil # 6.46 X10^3/uL (2.7-7.7); POSITIVE DIFFERENTIAL YES; Platelet Count 208 K/mm3 (150-450); RBC Distribution Width CV 13.1 % (11.6-14.6); RBC Distribution Width SD 43.8 fl (35.1-43.9); Red Blood Count 4.67 M/mm3 (4.2-5.4); White Blood Count 7.5 K/mm3 (4.4-11.0)
[2023-09-26 11:52] LABS: Differential Indicated SCAN CRITERIA MET
[2023-09-26 12:00] LABS: Anion Gap 7 (5-15); BUN 8 mg/dL (7-18); BUN/Creat Ratio 12.9 RATIO (10-20); Chloride 109 mmol/L (98-107); Creatinine, Serum 0.62 mg/dL (0.55-1.02); EST Glomerular Filtration Rate 107 mL/min (>60); Est Glom Filt Rate - Afr Amer 129 mL/min (>60); Estimated Creatinine Clearance 94.43 ml/min; Glucose 104 mg/dL (74-106); Potassium 3.3 mmol/L (3.5-5.1); Sodium Level 141 mmol/L (136-145)
[2023-09-26 12:10] LABS: Differential Comment SCANNED
[2023-09-26] MEDS: HYDROcodone Bitartrate/Apap 5/325 Tablet PO (13:56)
[2023-09-26 13:59] VITALS: BP 140/68; PULSE 82; RESP 16; O2SAT 98
== END 2023-09-26 14:01 | disposition home or self-care (01) ==
PROVIDERS: Emergency Provider Emergency Medicine; PCP Internal Medicine; Visit Provider Emergency Medicine
DX: S29.019A Strain of muscle and tendon of unspecified wall of thorax, initial encounter (principal); M25.562 Pain in left knee; M81.0 Age-related osteoporosis without current pathological fracture
CPT/HCPCS: 72070; 80048; 85025; 93971; 99283

== ENCOUNTER → 2024-01-27 | Outpatient (CLI) | payer OTHER, SELFPAY ==
[2024-01-27 08:49] LABS: Bacteria 0 SEEN /hpf (None Seen); Mucous, Urine 0 SEEN /hpf (<or=2+)
[2024-01-27 09:26] LABS: Color, Urine Yellow (Yellow); Glucose, Dipstick Normal (Normal); Ketone-Dipstick Negative (Negative); Leukocyte Esterase-Dipstick 25 /ul (Negative); Nitrite-Dipstick Negative (Negative); Occult Blood-Urine 10 /ul (Negative); Protein-Dipstick Negative (Negative); Specific Gravity, Urine 1.015 (1.002-1.030); Urine Bilirubin Dipstick Negative (Negative); Urine Clarity Sl. Cloudy (Clear); Urine Urobilinogen Normal (Normal)
[2024-01-27 09:32] LABS: Red Blood Cells-Urine 0-5 SEEN /hpf (0-5); Squamous Epithelial Cells - UA 0-5 SEEN /hpf (5-10); White Blood Cells 0-5 SEEN /hpf (0-5)
== END | disposition home or self-care (01) ==
LOC: LAB 08:46
PROVIDERS: PCP Internal Medicine; Visit Provider Internal Medicine Endocrinology, Diabetes & Metabolism
DX: M81.0 Age-related osteoporosis without current pathological fracture (principal); R10.2 Pelvic and perineal pain
CPT/HCPCS: 81001; 87086; 87088; 87186

== ENCOUNTER → 2024-05-14 | Outpatient (CLI) | payer OTHER, SELFPAY ==
--- NOTE | 2024-05-14 12:44 | US_ITS ---
STUDY: RENAL ULTRASOUND - COMPLETE REASON FOR EXAM: Female, 53 years old. UTI TECHNIQUE: Ultrasound evaluation of the kidneys was performed with real-time and static saba-scale imaging. COMPARISON: None. FINDINGS: RIGHT KIDNEY: Normal location of the right kidney, which is normal in size. The right kidney measures 10.3 cm. There is a normal cortex of the right kidney. The renal cortex measures 1.3 cm. There is no right renal mass or cyst. There are no right renal calculi. There is no right hydronephrosis. DISTAL RIGHT URETER: There is non-visualization of the distal right ureter. There is no demonstrated right ureterovesical junction calculus. There is a visualized right ureteral jet. LEFT KIDNEY: Normal location of the left kidney, which is normal in size. The left kidney measures 10.0 cm. There is a normal cortex of the left kidney. The renal cortex measures 1.6 cm. There is no left renal mass or cyst. There are no left renal calculi. There is no left hydronephrosis. DISTAL LEFT URETER: There is non-visualization of the distal left ureter. There is no demonstrated left ureterovesical junction calculus. There is a visualized left ureteral jet. BLADDER: The distended urinary bladder has a volume of 816 ml. The empty urinary bladder has a volume of ml. There is a normal wall thickness of the distended urinary bladder. There is no demonstrated mass within the urinary bladder. There are no demonstrated bladder calculi. Some layering debris in the bladder. US/Kidney and Bladder IMPRESSION: Normal ultrasound of the kidneys. Some debris in the bladder. Electronically Signed: Charan Renee MD at 10:03 EDT ,
== END | disposition home or self-care (01) ==
LOC: US 12:43
PROVIDERS: PCP Internal Medicine; Referring Provider Urology; Visit Provider Urology
DX: N39.0 Urinary tract infection, site not specified (principal)
CPT/HCPCS: 76770

== ENCOUNTER → 2024-09-21 | Outpatient (CLI) | payer OTHER, SELFPAY | END | disposition home or self-care (01) | LOC: OPBI 10:32 | PROVIDERS: PCP Internal Medicine; Referring Provider Obstetrics & Gynecology; Visit Provider Obstetrics & Gynecology | DX: Z12.31 Encounter for screening mammogram for malignant neoplasm of breast (principal) | CPT/HCPCS: 77063; 77067 ==

== ENCOUNTER → 2024-10-28 | Outpatient (CLI) | payer OTHER, SELFPAY ==
--- NOTE | 2024-10-28 15:59 | BD_ITS ---
STUDY: DUAL ENERGY X-RAY ABSORPTIOMETRY / DXA REASON FOR EXAM: Female, 53 years old. Compare TECHNIQUE: Bone Mineral Density (BMD) measurements of lumbar spine and bilateral hips were obtained. COMPARISON: Comparison is made with prior study dated September 12, 2022. FINDINGS: Lumbar Spine (L1-L4): g/cm2 (0.847) / T-score (-1.8) / Z-score (-0.8) Findings are suggestive of osteopenia with a moderate fracture risk. Left Femur Total: g/cm2 (0.868) / T-score (-0.6) / Z-score (0.1) Left Femoral Neck: g/cm2 (0.695) / T-score (-1.4) / Z-score (-0.3) Right Femur Total: g/cm2 (0.843) / T-score (-0.8) / Z-score (-0.1) Right Femoral Neck: g/cm2 (0.695) / T-score (-1.4) / Z-score (-0.3) The T-Scores on the most recent prior examination were: Lumbar Spine (L1-L4): There has been improvement of bone density since the previous examination. Left Femur Total: which represents an improvement of 9.5%. Right Femur Total: which represents an improvement of 2.8%. BD/Dexa Bone Density Study IMPRESSION: The patient is considered osteopenic as outlined below according to World [place] Organization (WHO) criteria with a moderate fracture risk. There has been improvement of bone density since the previous examination. Reference Information: The T-score is the number of standard deviations above or below the standard which is normal for young adults at their peak bone mineral density. The World Health Organization (WHO) interprets the T-scores as follows: Above -1 Normal bone density Between -1 and -2.5 Osteopenia Equal to / or below -2.5 Osteoporosis As a practical clinical guideline, osteopenia may be graded as follows: Mild -1 through -1.5 Moderate -1.6 through -2.0 Severe -2.1 through -2.4 The Z-score is the number of standard deviations above or below age-matched controls. A Z-score of less than -1.5 would be considered abnormal. References: 1. NIH Osteoporosis and Related Bone Diseases www osteo.org 2. International Society for Clinical Densitometry www iscd.org 3. National Osteoporosis Foundation www nof.org Electronically Signed: Harry Beaulieu MD at 9:26 EST ,
== END | disposition home or self-care (01) ==
LOC: OPBD 15:55
PROVIDERS: PCP Internal Medicine; Referring Provider Internal Medicine Endocrinology, Diabetes & Metabolism; Visit Provider Internal Medicine Endocrinology, Diabetes & Metabolism
DX: M81.0 Age-related osteoporosis without current pathological fracture (principal)
CPT/HCPCS: 77080

== ENCOUNTER → 2025-03-17 | Outpatient (CLI) | payer OTHER, SELFPAY ==
--- NOTE | 2025-03-17 10:55 | VDLE_ITS ---
Reason For Study Reason For Study: Localized edema RIGHT LEFT CFV is compressible, spontaneous, phasic, competent CFV is compressible, spontaneous, phasic, competent, and demonstrates normal augmentation. and demonstrates normal augmentation. FV is compressible, spontaneous, phasic, competent FV is compressible, spontaneous, phasic, competent and demonstrates normal augmentation. and demonstrates normal augmentation. POP V is compressible, spontaneous, phasic, competent POP V is compressible, spontaneous, phasic, competent and demonstrates normal augmentation. and demonstrates normal augmentation. T/P Trunk is compressible. T/P Trunk is compressible. PTV is compressible. PTV is compressible. RT PerV is compressible. LT PerV is compressible. SFJ is competent and measures 0.81 cm. SFJ is INCOMPETENT and measures 0.60 cm. GSV proximal thigh measures 0.35x0.28 cm. GSV proximal thigh measures 0.24x0.22 cm. GSV at knee measures 0.24x0.26 cm. GSV at knee measures 0.17x0.21 cm. GSV above knee is INCOMPETENT for greater than 0.5 GSV is competent throughout. seconds. SSV mid calf is competent and measures 0.22x0.25 cm. GSV below knee is competent. SSV mid calf is competent and measures 0.24x0.26 cm. Procedure Exam performed in department. This is a venous duplex using B-mode, color flow and spectral Doppler. The exam was diagnostic. Patient was scanned in reverse Trendelenburg position during reflux assessment. VL/Venous Duplex US - Rahul Extrem Interpretation Summary Deep veins of the bilateral lower extremities are patent and compressible segme ntally. There is no evidence of bilateral lower extremity deep vein thrombosis. The bilateral great saphenous veins appea r patent and compressible segmentally. Positive for reflux in the right great saphenous vein above the knee. Positive for reflux in the left saphenofemoral junction. Ordering Physician: Rigo Rachel Referring Physician: Ifeoma Ramsey M.D. Performed By: Nazanin Henriquez RVT
== END | disposition home or self-care (01) ==
LOC: CVS 10:54
PROVIDERS: PCP Internal Medicine; Referring Provider Student in an Organized Health Care Education/Training Program; Visit Provider Student in an Organized Health Care Education/Training Program
DX: I87.2 Venous insufficiency (chronic) (peripheral) (principal); R60.0 Localized edema
CPT/HCPCS: 93970